=== PATIENT | female | born 1970 | race Hispanic/Latino ===

== ENCOUNTER 2016-03-19 12:48 | Observation (INO) | payer MEDICARE, MEDICAID ==
[~2016-03-19] VITALS: Ht 167.6 cm; Wt 103.0 kg
[~2016-03-19 12:48] MED LIST: ALBU8.5H4 IH; BUTA-238 PO; GABA300T25 PO; INSU100V27 SQ; INSU100V7 SUBQ; METF750T2 PO; SIMV40TA5 PO; TOPI-31 PO
[2016-03-19 13:13] VITALS: BP 128/81; PULSE 93; RESP 20; O2SAT 98
[2016-03-19 14:08] LABS: BASOPHILS % (AUTO) 0.5 % (0-3); EOSINOPHILS % (AUTO) 1.5 % (0-5); Mean Corpuscular Hemoglobin 27.1 pg (27.0-35.0); Mean Corpuscular Volume 86.2 fL (81-100); NEUTROPHILS % (AUTO) 65.9 % (40-74); Platelet Count 62 bil/L (150-400)
[2016-03-19 14:22] LABS: Magnesium 1.7 mg/dL (1.6-2.6)
--- NOTE | 2016-03-19 15:29 | ED.REPORT ---
HPI-Abd Pain M 40 and Over Date of Service Mar 19, 2016 ED Provider: Bear Sandy PA-C Tonya is a 45-year-old female with a history of cirrhosis, thrombocytopenia and cholecystectomy who presents with right-sided rib pain. Patient states pain began insidiously about 4 days ago. The pain is worse when she reclines, she describes it as steady sharp pain that radiates to her back and shoulders. She states the pain is better when she is upright, when she describes as a "nagging pain". Pain is not affected by food. He has a history of recent surgery for a cerebellar bleed on June 25. Admits chronic constipation, history of type II diabetes. Denies cough, shortness of breath, wheezing, chest pain, palpitations , vomiting, diarrhea, bowel change, urinary symptoms, rash. Nursing Notes Stated Complaint: POSSIBLE LIVER PROBLEMS/SENT FROM DR OFFICE Chief Complaint: Female Abdominal Pain Nursing Notes Reviewed: Yes Allergies: Coded Allergies: Penicillins (Verified Allergy, Severe, anaphylaxis, 03/19/16) cefuroxime (Verified Allergy, Severe, Anaphylaxis, 03/19/16) Contrast Media (Verified Allergy, Unknown, TRANSFER FROM OLD ENTRY, 03/19/16 ) Sulfa (Sulfonamide Antibiotics) (Verified Allergy, Unknown, 03/19/16) aspirin (Verified Allergy, Unknown, hives, 03/19/16) cefuroxime axetil (Verified Allergy, Unknown, hives, 03/19/16) hydrocodone bitartrate (Verified Allergy, Unknown, hives, 03/19/16) hydrocodone (Unverified Adverse Reaction, Severe, Rash, 03/19/16) ketorolac (Unverified Adverse Reaction, Severe, Anaphylaxis; , 03/19/16) Scheduled Gabapentin (Gabapentin) 300 Mg Capsule 300 MG PO BIDBL Gabapentin (Gabapentin) 300 Mg Capsule 600 MG PO HS Insulin Glargine (Lantus U100 Insulin Vial) 100 Unit/Ml Vial 50 UNIT SUBQ BID Losartan Potassium (Losartan Potassium) 25 Mg Tablet 25 MG PO DAILY Metformin ER (Metformin ER) 750 Mg Tab.er.24h 750 MG PO BID Omeprazole (Omeprazole) 20 Mg Capsule.dr 20 MG PO DAILY Prednisolone Acetate (Prednisolone Acetate) 5 Ml Drops.susp 1 DROP LEFT_EYE QID Simvastatin (Simvastatin) 40 Mg Tablet 40 MG PO HS Topiramate (Topiramate) 200 Mg Tablet 200 MG PO BID Scheduled PRN Albuterol HFA (Proair HFA) 8.5 Gm Hfa.aer.ad 2 PUFFS INHALATION Q4H PRN PRN For Shortness of Breath Cyclopentolate (Cyclopentolate) 2 Ml Drops 1 DROP BOTH_EYES BID PRN PRN For Eye Irritation NPH, Human Insulin Isophane (Novolin-N U100 Insulin Vial) 100 Unit/1 Ml Vial 30- 50 UNIT SUBQ ACHS PRN PRN AD General Time Seen by MD: 15:04 Chief Complaint Abdominal pain Sudden in Onset?: No Past Medical History Past Medical History 1. Diabetes Type I 2. GI bleed 3. Neuropathy 4. Retinopathy 5. Thrombocytopenia 6. Hyperglycemia secondary to poorly controlled diabetes 7. Left tubal 8. 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 Hemoplegic migraines 10. Liver cirrhosis 12. Dysphagia Reports: Asthma, Diabetes mellitus, Hyperlipidemia Reports: Thyroid disease, Urinary tract infection Past Surgical History Tubular Craniotomy Reports: Cholecystectomy, Tonsillectomy Smoking History Current Every Day Smoker, Current Some Day Smoker Social History Alcohol Use: "Social" Drug Use: Denies drug use Other Social History: Good social support, Local resident Ambulatory Status Independent Physical Exam Initial Vital Signs Vital Signs (First) Date Time Temp Pulse Resp B/P Pulse Ox O2 Delivery O2 Flow Rate FiO2 03/19/16 13:13 36.6 93 20 128/81 98 Room Air Interpretation & Diagnostics Interpretation & Diagnostics: PROCEDURE: X-RAY CHEST, TWO VIEWS ([id number]) IMPRESSION: No acute process. Lab Results Interpretation Result Diagram: 03/19/16 1349 03/19/16 1349 Test 03/19/16 13:49 03/19/16 18:35 White Blood Count 4.0th/mm3 (3.8-10.1) Red Blood Count 3.84mil/mm3 (3.90-5.20) Hemoglobin 10.4g/dL (12.0-15.6) Hematocrit 33.1% (35.0-46.0) Mean Corpuscular Volume 86.2fL (81-100) Mean Corpuscular Hemoglobin 27.1pg (27.0-35.0) Mean Corpuscular Hemoglobin Concent 31.4% (32.0-37.0) Red Cell Distribution Width 16.3% (12.3-15.4) Platelet Count 62bil/L (150-400) Neutrophils (%) (Auto) 65.9% (40-74) Lymphocytes (%) (Auto) 24.1% (14-46) Monocytes (%) (Auto) 8.0% (4-12) Eosinophils (%) (Auto) 1.5% (0-5) Basophils (%) (Auto) 0.5% (0-3) Prothrombin Time 10.9sec (8.1-12.5) Prothromb Time International Ratio 1.02ratio D-Dimer 0.6mg/L (<0.50) Sodium Level 134mEq/L (134-144) Potassium Level 4.2mEq/L (3.5-5.2) Chloride Level 101mEq/L (97-108) Carbon Dioxide Level 19mmol/L (18-29) Blood Urea Nitrogen 13mg/dL (6-24) Creatinine 0.55mg/dL (0.57-1.00) Estimat Glomerular Filtration Rate 170mL/min (>59) Glucose Level 317mg/dL (60-99) Calcium Level 8.8mg/dL (8.5-10.1) Magnesium Level 1.7mg/dL (1.6-2.6) Total Bilirubin 0.7mg/dL (0.0-1.2) Aspartate Amino Transf (AST/SGOT) 20U/L (0-50) Alanine Aminotransferase (ALT/SGPT) 21U/L (0-32) Alkaline Phosphatase 277U/L (25-150) Total Protein 7.6g/dL (6.4-8.4) Albumin 3.6g/dL (3.4-5.0) Lipase 30U/L (13-60) Hold [place]arro Top Tube Received (Received) Urine Color Dark yellow (YELLOW) Urine Appearance Clear (CLEAR,HAZY) Urine pH 7.0 (5.0-8.0) Urine Specific [place] 1.020 (1.003-1.035) Urine Protein Negativemg/dL (NEG,TRACE) Urine Glucose (UA) 100mg/dL (NEGATIVE) Urine Ketones Negativemg/dL (NEGATIVE) Urine Occult Blood Negative (NEGATIVE) Urine Nitrite Negative (NEGATIVE) Urine Bilirubin Negative (NEGATIVE) Urine Urobilinogen 4.0mg/dL (NORMAL) Urine Leukocyte Esterase Negative (NEGATIVE) Urine RBC 0-2/hpf (0-2) Urine WBC 0-5/hpf (0-5) Urine Epithelial Cells None/hpf (NONE-MOD) Urine Crystals Amorphous urates (NONE Urine Bacteria Few/hpf (NONE-FEW) Urine Hyaline Casts None/lpf (NONE) Urine Granular Casts None seen (NONE SEEN) Urine Waxy Casts None seen (NONE SEEN) Urine Red Blood Cell Casts None seen (NONE SEEN) Urine White Blood Cell Casts None seen (NONE SEEN) Urine Mucus Present (None Seen) Urine Trichomonas None seen (NONE SEEN) Urine Yeast None (NONE SEEN) Urinalysis Comment None Urine Culture Reflexed Not indicated Hold Urine Received (Received) Lab Results Interpretation: CBC chronic thrombocytopenia CMP moderate hyperglycemia INR normal CT Abd / Pelvis Interpretation PROCEDURE: CT ABDOMEN AND PELVIS WITHOUT CONTRAST ([id number]) INDICATIONS: right upper quadrant pain IMPRESSION: 1. Diagnostic sensitivity limited by lack of oral and intravenous contrast. 2. No definite acute disease process. 3. Hepatosplenomegaly. 4. Liver has nodular margins suggestive of hepatic cirrhosis. Please correlate with clinical and laboratory data. 5. Periportal enlarged lymph nodes stable compared to prior examination. 6. Status post cholecystectomy. 7. Stable fat containing ventral hernias. 8. Masslike opacity in the right lung base. Finding could be due to inflammatory/infectious etiologies or neoplastic process. Recommend correlation with clinical and laboratory data as well as followup CT scan in 3 months. . Interpretation / Wet Read by: Interpret - ED physician, Interpret - Radiologist Re-Eval/Medical Decision Source of Hx: Old records Consultation : Referral / Consult Name: Ian Petersen DO Consulted With: Tennis Racket Repairer Requested Call at: 19:24 Call Returned at: 19:38 Social Media Manager: Will see in office Note: Discussed the case with Dr. Petersen he advised ruling out pulmonary embolus as a source of pain, discharging to home with follow-up the end of this week or early next. Discharge & Departure Primary Impression: Lung mass Additional Impressions: Chest pain Chest pain type: unspecified Qualified Code: R07.9 - Chest pain, unspecified Hyperglycemia Vital Signs - All Vital Signs Date Time Temp Pulse Resp B/P Pulse Ox O2 Delivery O2 Flow Rate FiO2 03/19/16 20:24 37.4 97 18 117/72 97 Room Air 03/19/16 17:52 36.7 96 16 122/81 97 Room Air 03/19/16 13:13 36.6 93 20 128/81 98 Room Air Referrals: Dannielle Bernard MD (PCP) Attending Statement This is a 45-year-old female seen initially by the mid-level provider. However personally examined this patient. She presents with an uncomfortable-appearing right-sided chest pain or/right upper quadrant pain. She has a history of fatty liver disease, nonalcoholic cirrhosis with chronic thrombocytopenia and his x-ray followed by Dr. BERNARD OF Hematology. She underwent extensive workup, that included blood work which is fairly unremarkable except for chronic thrombocytopenia and hyperglycemia with poorly controlled diabetes without evidence of DKA. She underwent imaging with a CT scan abdomen and pelvis which revealed lots of chronic findings, but is actually notable for potential lung mass in the right side-and it had to be exactly where she is complaining of her symptoms. Not tachycardic or hypoxic. She is in moderate pain. She is a smoker, and malignancy is in the differential. Discussed the case with Dr. Petersen from hematology on-call for her regular dairy nutritionist. Given her symptoms, he requested a CT angiogram, however she has not contrast allergy-is only mild itching. A d-dimer was added and is positive at 0.6. The patient received a single dose of protective Lovenox at the dosing recommended by the pharmacist in the setting of her known liver disease and thrombocytopenia. The plan is to initiate the contrast allergy protocol and obtain a CT chest in the morning for further evaluation, at which point further follow-up with her dairy nutritionist/oncologist can be obtained if negative for PE. Bear Sandy PA-C Mar 19, 2016 15:29 Rajan Hays MD Mar 20, 2016 00:09
--- NOTE | 2016-03-19 16:31 | DRSVH ---
PROCEDURE: X-RAY CHEST, TWO VIEWS ([id number]) INDICATIONS: rib pain TECHNIQUE: 2 views of the chest were acquired. COMPARISON: [facility], CHEST 2VW, 02/27/2014, 2:27 PM. FINDINGS: Surgical changes and devices: None. Lungs and pleura: No pleural effusions or pneumothorax. Lungs are clear. Mediastinum: Mediastinal contours are normal. Heart size is normal. Bones and chest wall: No suspicious bony abnormalities. Soft tissues appear unremarkable. IMPRESSION: No acute process. Dictated by: Paul Lara M.D. on 03/19/2016 at 16:29 Approved by: Paul Lara M.D. on 03/19/2016 at 16:29
[2016-03-19 17:52] VITALS: BP 122/81; PULSE 96; RESP 16; O2SAT 97
--- NOTE | 2016-03-19 19:03 | DRSVH ---
PROCEDURE: CT ABDOMEN AND PELVIS WITHOUT CONTRAST ([id number]) INDICATIONS: right upper quadrant pain TECHNIQUE: Noncontrast 5 mm thick sections acquired from the diaphragms to the symphysis. 5 mm coronal and sagi ttal reformats were then performed. For radiation dose reduction, the following was used: automated exposure control, adjustment of mA and/or kV according to patient size. COMPARISON: [facility], CT, CT ABD PELVIS W CON, 04/23/2015, 10:23. FINDINGS: Image quality: Diagnostic sensitivity of study is limited secondary to lack of both oral and intrave nous contrast. ABDOMEN: Lung bases: 2.5 cm in maximum diameter masslike opacity is noted in the anterolateral right lung bas e. Heart size is normal. Solid organs: Liver and spleen are enlarged. Liver has nodular margins suggesting hepatic cirrhosis . Gallbladder is surgically absent. Pancreas is normal in contours. No adrenal nodules. Kidneys a re normal in size, without hydronephrosis or nephrolithiasis. Peritoneum and bowel: Unenhanced bowel loops demonstrate normal wall thickness and caliber. No free fluid or air. Nodes and vessels: Periportal enlarged lymph nodes are stable compared to prior CT scan. and inferi or vena cava are normal in caliber. Miscellaneous: Fat-containing ventral hernias are stable compared to prior examination.. PELVIS: Genitourinary: Bladder wall thickness is normal. Miscellaneous: No inguinal hernias or adenopathy. Bones: No suspicious bony lesions. No vertebral body compression fractures. IMPRESSION: 1. Diagnostic sensitivity limited by lack of oral and intravenous contrast. 2. No definite acute disease process. 3. Hepatosplenomegaly. 4. Liver has nodular margins suggestive of hepatic cirrhosis. Please correlate with clinical and la boratory data. 5. Periportal enlarged lymph nodes stable compared to prior examination. 6. Status post cholecystectomy. 7. Stable fat containing ventral hernias. 8. Masslike opacity in the right lung base. Finding could be due to inflammatory/infectious etiolog ies or neoplastic process. Recommend correlation with clinical and laboratory data as well as follow up CT scan in 3 months. Dictated by: Basilia Genao MD, PhD on 03/19/2016 at 18:52 Approved by: Basilia Genao MD, PhD on 03/19/2016 at 19:02
[2016-03-19 19:25] LABS: INR 1.02 ratio
[2016-03-19 20:02] LABS: APPEARANCE,URINE CLEAR (CLEAR,HAZY); COLOR,URINE DARK YELLOW (YELLOW)
[2016-03-19 20:03] LABS: OCCULT BLOOD,URINE NEGATIVE (NEGATIVE)
[2016-03-19 20:24] VITALS: BP 117/72; PULSE 97; RESP 18; O2SAT 97
[2016-03-19] MEDS ORDERED: ALBU8.5H2 INHALATION (20:51)
[2016-03-19] MEDS ORDERED: CYCL2DRO10 BOTH_EYES (20:51)
[2016-03-19] MEDS ORDERED: GABA-502 PO ×2 (20:51)
[2016-03-19] MEDS ORDERED: INSU500I SQ (20:51)
[2016-03-19] MEDS ORDERED: TOPI200T7 PO (20:54)
[2016-03-19] MEDS ORDERED: LOSA25TA21 PO (20:54)
[2016-03-19] MEDS ORDERED: PRED5DRO6 LEFT_EYE (20:54)
[2016-03-19] MEDS ORDERED: OMEP20CA11 PO (20:54)
[2016-03-19] MEDS ORDERED: Polyethylene Glycol (PEG) 17 Gm Powder PO PRN (21:40)
[2016-03-19] MEDS ORDERED: Ondansetron 2 mg/mL 2 mL Inj IVPUSH PRN ×2 (21:40)
[2016-03-19] MEDS ORDERED: predniSONE 20 mg Tablet PO ONE ×2 (21:40→22:20)
[2016-03-19] MEDS ORDERED: HYDROmorphone 1 mg/mL Inj IVPUSH ONE (21:40)
[2016-03-19] MEDS ORDERED: Alum-Mag Hydrox-Simeth 30 mL Suspension PO PRN ×2 (21:40)
[2016-03-19 21:50] VITALS: BP 117/72; PULSE 97; RESP 18; O2SAT 97
[2016-03-19] MEDS ORDERED: diphenhydrAMINE 50 mg Capsule PO ONE (21:55)
[2016-03-19] MEDS ORDERED: (U-500) Insulin Regluar, Human 500 Unit/mL Syringe SUBQ PRN (22:20)
[2016-03-19] MEDS ORDERED: Glucose 40% Oral Gel 15 Gm Tube PO PRN (22:20)
[2016-03-19] MEDS ORDERED: Albuterol 2.5 mg/3 mL Inhalation Solution NEB PRN (22:30)
[2016-03-19 22:32] VITALS: BP 131/85; PULSE 107; RESP 18; O2SAT 94
--- NOTE | 2016-03-19 22:39 | PCM.HPMED ---
Subjective Date of Service Mar 19, 2016 Primary Provider: Admitting Physician: Bassem Jenkins MD Primary Care Physician: Dannielle Garnica MD Attending Physician: Bassem Jenkins MD Chief Complaint: Right chest pain History of Present Illness: Patient is a 45 year old female with a history of cirrhosis secondary to fatty liver disease, type 2 diabetes mellitus, cerebellar hemorrhage, seizure disorder , and thrombocytopenia. She presented to [facility] on 03/19/16 with about 4 days of right chest pain. The pain radiates into her right shoulder blade, neck and back. She states that is has been nagging and is of a sharp quality. It can be worse when she sits back. It has worsened to the point where she feels nauseated but denies any vomiting. She has not been short of breath, without fever/chills, no recent cold or flu symptoms such as cough or sore throat, and she denies dysuria/hematuria. In the ED the patient is afebrile with a heart rate of 93, respiratory rate of 20, blood pressure 128/81, and O2 saturation of 98% on room air. Labs were remarkable for platelets 62, hgb 10.4, blood glucose 317, and alkaline phosphatase of 277. New lung mass seen on CT abd/pelvis. Dr. Petersen of heme/onc called and recommended CTA. As patient has contrast allergy she will be admitted for the standard contrast allergy protocol. Discussed with Dr. Hays. Review of Systems: A comprehensive review of systems was conducted with the patient and found to be negative except as above in the history of present illness. Allergies Coded Allergies: Penicillins (Verified Allergy, Severe, anaphylaxis, 03/19/16) cefuroxime (Verified Allergy, Severe, Anaphylaxis, 03/19/16) Contrast Media (Verified Allergy, Unknown, TRANSFER FROM OLD ENTRY, 03/19/16 ) Sulfa (Sulfonamide Antibiotics) (Verified Allergy, Unknown, 03/19/16) aspirin (Verified Allergy, Unknown, hives, 03/19/16) cefuroxime axetil (Verified Allergy, Unknown, hives, 03/19/16) hydrocodone bitartrate (Verified Allergy, Unknown, hives, 03/19/16) hydrocodone (Unverified Adverse Reaction, Severe, Rash, 03/19/16) ketorolac (Unverified Adverse Reaction, Severe, Anaphylaxis; , 03/19/16) Home Medications Per [facility] 03/06/16: Acarbose 100 mg tablet take 1 tablet by oral route 3 times every day at the start (with the first bite) of each main meal Albuterol sulfate HFA 90 mcg/actuation aerosol inhaler inhale 2 puff by inhalation route every 4 - 6 hours as needed Cyclopentolate 1 % eye drops instill 1 drop by ophthalmic route 2 times every day into affected eye(s) GABAPENTIN 300 MG CAPSULE 300MG TAKE ONE CAPSULE BY MOUTH IN THE MORNING AND NOON AND TAKE 2 CAPSULES AT BEDTIME Humulin R U-500 "Concentrated" Insulin 500 unit/mL subcutaneous soln inject by subcutaneous route 12-15 units before each meal Lantus 100 unit/mL subcutaneous solution 60 units subcu twice daily Losartan 25 mg tablet take 1 tablet by oral route every day Metformin ER 750 mg tablet,extended release 24 hr take 1 tablet by oral route twice every day Omeprazole 20 mg capsule,delayed release take 1 capsule by oral route every day before a meal SIMVASTATIN 40MG TABLET TAKE ONE TABLET BY MOUTH DAILY IN THE EVENING FOR HIGH CHOLESTEROL Topamax 200 mg tablet take 1 tablet by oral route 2 times every day PMH Type 2 diabetes mellitus with peripheral neuropathy, insulin dependent GERD Seizure disorder 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) Gastroparesis History of cystocele Hyperlipidemia Migraine with aura Cirrhosis secondary to fatty liver disease Surgical History Tonsillectomy Cholecystectomy Angioembolization ([facility], June 2015) Family History Father - type 2 DM Mother - COPD Sister - Hepatitis C Social History Hx Alcohol Use: No Hx Substance Use: No Hx Tobacco Use: Yes Smoking Status: Former Smoker (Reports light smoking in college) Exam Vital Signs Vital Sign - Last Date Time Temp Pulse Resp B/P Pulse Ox O2 Delivery O2 Flow Rate FiO2 03/19/16 20:24 37.4 97 18 117/72 97 Room Air Exam Alert and oriented x3, no acute distress, obese Head atraumatic, normocephalic PERRLA, EOMI, sclera anicteric Mucus membranes moist, no oral thrush observed No cervical lymphadenopathy, neck supple, tender on the right No JVD noted Cardiac tones regular rate and rhythm with no murmur appreciated Lungs clear to auscultation bilaterally with adequate respiratory effort No abdominal tenderness, non-distended, normoactive bowel tones, soft Og absent Radial pulses normal and equivalent bilaterally, dorsalis pedis pulses normal and equivalent bilaterally No cyanosis, clubbing or edema No ulcerations/open wounds Cranial nerves appear to be fully intact, normal speech - some difficulty finding words, patient can move upper and lower limbs grossly Lab and Diagnostics Result Diagram: 03/19/16 1349 03/19/16 1349 X-Rays, CTs and MRIs CT abd/pelvis: IMPRESSION: 1. Diagnostic sensitivity limited by lack of oral and intravenous contrast. 2. No definite acute disease process. 3. Hepatosplenomegaly. 4. Liver has nodular margins suggestive of hepatic cirrhosis. Please correlate with clinical and laboratory data. 5. Periportal enlarged lymph nodes stable compared to prior examination. 6. Status post cholecystectomy. 7. Stable fat containing ventral hernias. 8. Masslike opacity in the right lung base. Finding could be due to inflammatory/infectious etiologies or neoplastic process. Recommend correlation with clinical and laboratory data as well as followup CT scan in 3 months. Dictated by: Basilia Genao MD, PhD on 03/19/2016 at 18:52 Chest x-ray IMPRESSION: No acute process. Dictated by: Paul Lara M.D. on 03/19/2016 at 16:29 Assessment & Plan Patient is a 45 year old female with a history of cirrhosis secondary to fatty liver disease, type 2 diabetes mellitus, cerebellar hemorrhage, seizure disorder , and thrombocytopenia. She presented to [facility] on 03/19/16 with about 4 days of right chest pain. New lung mass/consolidation discovered on CT abd/pelvis. Dr. Petersen was consulted and recommended follow up CTA as soon as possible. Patient admitted obs for administration of contrast allergy pre-treatment and CTA chest. 1. Chest pain overlying new lung mass in right lower lung, acute, present on admission. - Cannot positively rule out PE at this time and D-dimer elevated. Could be malignancy or infectious consolidation. Infection less likely due to normal WBC , afebrile. - CT contrast allergy standard pre-treatment protocol including: Prednisone 50 mg PO 13 hours, 7 hours, and 1 hour prior to exam; Benadryl 50 mg PO 1 hour prior to exam. - CTA PE protocol ordered per Dr. Petersen and pending pre-treatment protocol. - Full dose Lovenox started 100 mg BID (per pharmacy) and will be continued until PE ruled out. - Oxycodone 5 mg available Q6H PRN. Tylenol also available PRN pain. - No evidence of COLLIN at this time. Could consider administration of 1 liter IV fluids tomorrow AM. - Repeat BMP tomorrow AM. 2. Type 2 DM with neuropathy, chronic, uncontrolled. - Last known A1c 12.1 on 10/19/14. - Continue lantus 60 units BID. Unconfirmed home insulin - Humulin-R (U-500) 12 -15 TID with meals. - Diabetic diet ordered. - Will hold metformin at this time as patient will be receiving IV contrast in AM. - Continue gabapentin 300 mg QAM, 300 mg at noon, 600 mg HS. - Continue acarbose 100 mg TID. - Repeat A1c ordered and pending. - With administration of prednisone, expect to see blood sugar run higher than normal. Will monitor closely and have high dose correction scale available PRN. 3. GERD, chronic, presume stable. - Continue PPI during admission. 4. Hyperlipidemia, chronic, presume stable. - Continue statin during admission. 5. Seizure disorder, chronic, presume stable. - Continue topamax 200 mg BID. 6. Cirrhosis secondary to fatty liver disease with thrombocytopenia, presume stable. - Patient follows with Dr. Garnica. - Will continue to monitor CBC, CMP. 7. History of right superior cerebellar peduncle hemorrhage, presume stable. - Underwent angioembolization at [facility] in June 2015. - If concerns about mental status changes, low threshold for CT head. 8. Medication reconciliation: - Patient has told different providers different home dosing of short acting insulin. Please verify dosing with her preferred pharmacy tomorrow AM when they are open. - Antiemetic PRN. - Antacid PRN. - Bowel regimen PRN. Patient admitted under observation status with expected length of stay less than 2 midnights for severity of present symptoms, complexities of treatment plan and risk for adverse events. PCP Quique Anthony MD Neurologist Pito Whitaker MD Clinical Staff Educator Dannielle Garnica MD GI Prophylaxis: Proton Pump Inhibitor VTE Prophylaxis: Sub-Q Enoxaparin Resuscitation Status: CPR: Attempt Resuscitation Attending Statement The patient was seen and examined together with Dr. Sal on 03/19 and I agree with the history, exam and plan as outlined in the note above. copies to: Quique Anthony MD, Jennifer E DO Mar 19, 2016 22:06 Bassem Jenkins MD Mar 20, 2016 00:38
[2016-03-20] MEDS ORDERED: NPH,100V10 SUBQ (00:01)
[2016-03-20] MEDS: Insulin GLARgine 100 Unit/mL Syringe SUBQ SCH ×3 (00:31→20:54)
[2016-03-20] MEDS ORDERED: Lactulose 20 Gm/30 mL 30 mL Syrup PO ONE (01:45)
[2016-03-20 03:56] VITALS: BP 100/64; PULSE 89; RESP 18; O2SAT 97
--- NOTE | 2016-03-20 04:45 | NUR ---
Admit Pt arrived to [facility] 240-2 from ED. Pt is allergic to contrast medium and is requiring a CT scan to rule out PE. Pt is admitted to receive Steroids and Benadryl per protocol prior to scan. Pt uses a FWW at baseline to ambulate and is A&Ox3 and able to DREW. Pt orient to call light, falls policy and room. VSS and Tele SR/T90's to 110's.
[2016-03-20] MEDS: predniSONE 20 mg Tablet PO SCH ×2 (05:11→10:54)
[2016-03-20 07:00] VITALS: PULSE 102
[2016-03-20 07:55] LABS: BASOPHILS % (AUTO) 0.3 % (0-3); EOSINOPHILS % (AUTO) 0 % (0-5); MONOCYTES % (AUTO) 2.2 % (4-12); Mean Corpuscular Hemoglobin 27.2 pg (27.0-35.0); Mean Corpuscular Volume 86.2 fL (81-100); NEUTROPHILS % (AUTO) 84.8 % (40-74); Platelet Count 55 bil/L (150-400)
[2016-03-20 08:00] VITALS: PULSE 100
[2016-03-20] MEDS ORDERED: Insulin LISPRO 300 Unit/3 mL Inj SUBQ SCH (08:00)
[2016-03-20] MEDS: Pantoprazole 40 mg ER24 Tablet PO SCH (08:14)
[2016-03-20 08:17] LABS: Magnesium 1.6 mg/dL (1.6-2.6); Phosphorus 3.5 mg/dL (2.5-4.9)
[2016-03-20] MEDS ORDERED: Influenza (Adult) Vaccine 0.5 mL Syringe IM ONE (08:30)
[2016-03-20 08:35] VITALS: BP 111/73; PULSE 86; RESP 16; O2SAT 97
[2016-03-20] MEDS ORDERED: diphenhydrAMINE 50 mg Capsule PO ONE (11:00)
--- NOTE | 2016-03-20 11:41 | NUR ---
Case Management: LIZ delivered and signed. Original placed in chart. Copy left at bedside. Prudence Weaver RN
--- NOTE | 2016-03-20 13:29 | DRSVH ---
PROCEDURE: CT ANGIO CHEST PULMONARY EMBOLISM ([id number]) INDICATIONS: chest pain TECHNIQUE: After the administration of intravenous contrast, 2 mm thick sections acquired from the pulmonary api joon to the posterior costophrenic angles. 3-dimensional maximum intensity projection (MIP) coronal a nd sagittal reformats were then acquired through the thorax. For radiation dose reduction, the follo wing was used: automated exposure control, adjustment of mA and/or kV according to patient size. COMPARISON: [facility], CT, CHEST ANGIO-PE, 08/20/2013, 22:39. [facility], C T, CT ABD PELVIS WO CON, 03/19/2016, 18:45. FINDINGS: Image quality: Excellent. Pulmonary arteries: Pulmonary arteries are normal in size, and demonstrate no intraluminal filling d efects to suggest central pulmonary embolism. Lungs and pleura: Masslike consolidation in the right lung base is noted which could represent pneumo tim or atelectasis, however underlying neoplastic process can't be excluded. Recommend correlation wi clinical and laboratory data as well as followup CT scan in one month. No pleural effusions or pne umothorax. Central and peripheral airways are patent. Mediastinum: Heart size is normal, without pericardial effusion. No mediastinal or hilar adenopathy . Thoracic aorta is normal in caliber and enhancement. Esophagus is normal in caliber, without hiat al hernia. Bones and chest wall: No suspicious bony lesions. Ribs and thoracic spine appear intact throughout. Thyroid gland is within normal limits. No axillary or supraclavicular adenopathy. Abdomen: Liver has nodular margins suggestive of hepatic cirrhosis. Spleen is enlarged. Periportal en larged lymph nodes are stable compared to prior examinations. IMPRESSION: 1. No pulmonary embolus. 2. Masslike consolidation in the right lung base. Finding could represent pneumonia or atelectasis, however underlying neoplastic process cannot be excluded without follow up imaging. Recommend repeat CT scan in one month. 3. Findings suspicious for hepatic cirrhosis. Please correlate with clinical and laboratory data. 4. Splenomegaly. 5. Enlarged periportal lymph nodes in the upper abdomen stable compared to prior examinations. Dictated by: Basilia Genao MD, PhD on 03/20/2016 at 13:17 Approved by: Basilia Genao MD, PhD on 03/20/2016 at 13:27
[2016-03-20 15:23] VITALS: BP 134/82; PULSE 78; RESP 16; O2SAT 96
--- NOTE | 2016-03-20 17:31 | PCM.PNMED ---
Subjective Date of Service Mar 20, 2016 Subjective Patient is a 45 year old female with a history of cirrhosis secondary to fatty liver disease, type 2 diabetes mellitus, cerebellar hemorrhage, seizure disorder , and thrombocytopenia. Patient is admitted for r/o of PE and evaluation of right sided lung mass. Hospital Day 2 Overnight: no events reported Today: patient stated that she is having right sided chest pain that is reproduced with motion and not fully covered by pain medication. Patient denies hemoptysis, chest pressure, shortness of breath, fever, chills. ROS negative except for mentioned above. Exam Vital Signs Vital Sign - Last Date Time Temp Pulse Resp B/P Pulse Ox O2 Delivery O2 Flow Rate FiO2 03/20/16 07:00 102 03/20/16 03:56 36.9 18 100/64 97 Room Air Intake and Output 03/19/16 03/19/16 03/20/16 Cumulative From/Thru 15:00 23:00 07:00 03/19/16 13:13 - 03/20/16 03:56 Intake Total 100 ml 100 ml Output Total 150 ml 150 ml Balance -50 ml -50 ml Intake Oral 100 ml 100 ml Output Urine Total 150 ml 150 ml # Bowel Movements 0 0 Exam GEN:Alert and oriented x3, no acute distress, obese HEENT:Head atraumatic, normocephalic, PERRLA, EOMI, sclera anicteric, Mucus membranes moist, no oral thrush observed, No cervical lymphadenopathy, neck supple, tender on the right No JVD noted HEART:Cardiac tones regular rate and rhythm with no murmur appreciated LUNGS: Lungs clear to auscultation bilaterally with adequate respiratory effort ABD: No abdominal tenderness, non-distended, normoactive bowel tones, soft EXT:Radial pulses normal and equivalent bilaterally, dorsalis pedis pulses normal and equivalent bilaterally,No cyanosis, clubbing or edema, No ulcerations /open wounds NEURO: Cranial nerves appear to be fully intact, normal speech - some difficulty finding words, patient can move upper and lower limbs grossly : Og absent IVs and Medications Medications Reviewed: Medications were reviewed in detail Lab and Diagnostics Result Diagram: 03/19/16 1349 03/19/16 1349 X-Rays, CTs and MRIs CT abd/pelvis: IMPRESSION: 1. Diagnostic sensitivity limited by lack of oral and intravenous contrast. 2. No definite acute disease process. 3. Hepatosplenomegaly. 4. Liver has nodular margins suggestive of hepatic cirrhosis. Please correlate with clinical and laboratory data. 5. Periportal enlarged lymph nodes stable compared to prior examination. 6. Status post cholecystectomy. 7. Stable fat containing ventral hernias. 8. Masslike opacity in the right lung base. Finding could be due to inflammatory/infectious etiologies or neoplastic process. Recommend correlation with clinical and laboratory data as well as followup CT scan in 3 months. Dictated by: Basilia Genao MD, PhD on 03/19/2016 at 18:52 Chest x-ray IMPRESSION: No acute process. Dictated by: Paul Lara M.D. on 03/19/2016 at 16:29 Assessment & Plan Patient is a 45 year old female with a history of cirrhosis secondary to fatty liver disease, type 2 diabetes mellitus, cerebellar hemorrhage, seizure disorder , and thrombocytopenia. Patient admitted obs for administration of contrast allergy pre-treatment and CTA chest. Hospital Day 2 1. Chest pain overlying new lung mass in right lower lung, acute, present on admission. -due to suspected pneumonia ,lung mass needs to be ruled out with follow up imaging - - CT contrast allergy standard pre-treatment protocol including: Prednisone 50 mg PO 13 hours, 7 hours, and 1 hour prior to exam; Benadryl 50 mg PO 1 hour prior to exam. - CTA negative for PE, showed presence of right lower lobe consolidation, recommend repeat ct and appropriate antibiotic treatment to r/o infectious etiology - Start Levaquin 500 mg PO QD - Stop Lovenox - Stop Oxycodone 5 mg available Q6H PRN. - Tylenol available PRN pain. - Repeat BMP tomorrow AM. 2. Type 2 DM with neuropathy, chronic, uncontrolled. - Last known A1c 12.1 on 10/19/14. - Continue lantus 60 units BID. Unconfirmed home insulin - Humulin-R (U-500) 12 -15 TID with meals. - Diabetic diet ordered. - Will hold metformin at this time as patient will be receiving IV contrast in AM. - Continue gabapentin 300 mg QAM, 300 mg at noon, 600 mg HS. - Continue acarbose 100 mg TID. - Repeat A1c ordered and pending. - Continue med correctional insulin 3. GERD, chronic, stable. - Continue PPI during admission. 4. Hyperlipidemia, chronic, stable. - Continue statin during admission. 5. Seizure disorder, chronic, stable. - Continue topamax 200 mg BID. 6. Cirrhosis secondary to fatty liver disease with thrombocytopenia, stable. - Patient follows with Dr. Garnica. - Will continue to monitor CBC, CMP. 7. History of right superior cerebellar peduncle hemorrhage, presume stable. - Underwent angioembolization at [facility] in June 2015. - If concerns about mental status changes, low threshold for CT head. - Antiemetic PRN. - Antacid PRN. - Bowel regimen PRN. Disposition: Likely discharge to home tomorrow on po abx CODE STATUS: FULL CODE PCP Quique Anthony MD Neurologist Pito Whitaker MD Regional Sales Engineer Dannielle Garnica MD GI Prophylaxis: Proton Pump Inhibitor VTE Prophylaxis: Sub-Q Enoxaparin Resuscitation Status: CPR: Attempt Resuscitation Attending Statement patient seen and examined with Dr Baum .I agree with the history,exam, impression and plan as outlined above EDILMA BAUM DO Mar 20, 2016 07:29 Anton Max MD Mar 20, 2016 18:41
[2016-03-20] MEDS ORDERED: Glucose 40% Oral Gel 15 Gm Tube PO PRN (18:50)
--- NOTE | 2016-03-20 19:18 | NUR ---
Blood sugar Pt's blood sugar in AM was 430 before breakfast. 12 units of insulin given per sliding scale orders. Doctor was paged to notify. Blood sugar was 400 one hour later. The blood sugar was checked again and was 435 at 1100. Order for insulin had been discontinued and so no sliding scale insulin was given at this time. Resident was present at the bedside and was aware of blood sugar. At dinner time blood sugar was up to 465. Doctor was paged again and clarification was requested regarding no orders for insulin. The doctor called back and orders were put in for insulin coverage. Continue to monitor.
[2016-03-20] MEDS: Insulin LISPRO 300 Unit/3 mL Inj SUBQ SCH (21:00)
[2016-03-20 22:54] VITALS: BP 109/68; PULSE 97; RESP 18; O2SAT 96
[2016-03-21] MEDS ORDERED: Insulin LISPRO 300 Unit/3 mL Inj SUBQ ONE (03:30)
[2016-03-21 03:31] VITALS: BP 109/69; PULSE 84; RESP 18; O2SAT 97
[2016-03-21 04:40] VITALS: PULSE 79
[2016-03-21 05:29] LABS: Mean Corpuscular Hemoglobin 27.7 pg (27.0-35.0); Mean Corpuscular Volume 85.2 fL (81-100)
--- NOTE | 2016-03-21 06:04 | NUR ---
Pain/GI/BG Pt had one coughing spell and suddenly felt sharp pain on R side of ribs, felt that she had a muscle spasm or pulled a muscle. Oxycodone given x1, effective. Senna given for constipation, no results yet. BG elevated in 350-430's, called and order for 0300 coverage obtained.
[2016-03-21] MEDS ORDERED: Insulin Human REGular-Omnicell 100 Unit/mL SUBQ ONE (06:25)
[2016-03-21 07:38] VITALS: BP 103/68; PULSE 83; RESP 16
[2016-03-21] MEDS: Pantoprazole 40 mg ER24 Tablet PO SCH (07:39)
[2016-03-21] MEDS: Insulin GLARgine 100 Unit/mL Syringe SUBQ SCH (07:40)
[2016-03-21 07:47] VITALS: PULSE 87
[2016-03-21] MEDS ORDERED: Insulin GLARgine 100 Unit/mL Syringe SUBQ ONE (08:15)
[2016-03-21] MEDS: Insulin LISPRO 300 Unit/3 mL Inj SUBQ SCH ×2 (08:29→12:00)
[2016-03-21] MEDS ORDERED: Azithromycin Inj 500 MG in Dextrose 5% w/Vial Mate 250 ML IV SCH (08:30)
[2016-03-21] MEDS ORDERED: levoFLOXacin 500 mg Tablet PO SCH (08:30)
[2016-03-21 09:50] VITALS: BP 101/66; PULSE 93; RESP 18; O2SAT 97
[2016-03-21] MEDS ORDERED: 0.9% Sodium Chloride 500 ML IV ONE ×2 (11:10→12:40)
--- NOTE | 2016-03-21 11:14 | PCM.DIMED ---
Discharge Instructions Date of Service Mar 21, 2016 Dates of Hospitalization Mar 19, 2016 at 21:27 Discharge Diagnosis Discharge Diagnosis Pneumonia Questionable lung mass Pleurodynia Uncontrolled type II diabetes Cirrhosis of the liver Medication Instructions Please review your diabetes medications as they have been changed. Her blood sugars have been running in the high 300s and sometimes over 400. Please follow up in new recommended medication regimen for your diabetes medications. Please keep her appointment with her dermatology physician on March 26 as this is very critical to ensuring that her blood sugars are controlled. Diet Heart Healthy, Diabetic Activity Other (gradually returned to your normal daily activities as tolerated) Call your provider Fever or Chills, Shortness of breath, Chest pain Patient Instructions Please follow-up with her primary care physician to have a repeat CT scan of the chest in 4 weeks. You currently have pneumonia however there was a questionable lung mass that was noted this may have been due to the pneumonia however a repeat CT scan of the chest is necessary to ensure that no lung masses present. Follow-up plan CT scan of the chest in 4 weeks Follow-up Provider: Dannielle Garnica MD Follow-up with PCP in: 1 week Amirah Posadas DO Mar 21, 2016 11:14
[2016-03-21] MEDS ORDERED: ACAR25TA2 PO (11:18)
[2016-03-21] MEDS ORDERED: LEVO500T16 PO (11:18)
[2016-03-21] MEDS ORDERED: INSU100V7 SUBQ (11:18)
--- NOTE | 2016-03-21 11:34 | PCM.DC.MED ---
Discharge Summary Date of Service Mar 21, 2016 Dates of Hospitalization Date of Hospital Admission Mar 19, 2016 at 21:27 Date of Discharge: Mar 21, 2016 Providers: Admitting Physician: Bassem Jenkins MD Primary Care Physician: Dannielle Garnica MD Attending Physician: Bassem Jenkins MD Diagnosis at Time of Discharge Diagnosis at Time of Discharge Pneumonia Questionable lung mass Pleurodynia Uncontrolled type II diabetes Cirrhosis of the liver Procedures XRay, CTs & MRIs CT abd/pelvis: IMPRESSION: 1. Diagnostic sensitivity limited by lack of oral and intravenous contrast. 2. No definite acute disease process. 3. Hepatosplenomegaly. 4. Liver has nodular margins suggestive of hepatic cirrhosis. Please correlate with clinical and laboratory data. 5. Periportal enlarged lymph nodes stable compared to prior examination. 6. Status post cholecystectomy. 7. Stable fat containing ventral hernias. 8. Masslike opacity in the right lung base. Finding could be due to inflammatory/infectious etiologies or neoplastic process. Recommend correlation with clinical and laboratory data as well as followup CT scan in 3 months. Dictated by: Basilia Genao MD, PhD on 03/19/2016 at 18:52 Chest x-ray IMPRESSION: No acute process. Dictated by: Paul Lara M.D. on 03/19/2016 at 16:29 Brief History Patient is a 45 year old female with a history of cirrhosis secondary to fatty liver disease, type 2 diabetes mellitus, cerebellar hemorrhage, seizure disorder , and thrombocytopenia. She presented to [facility] on 03/19/16 with about 4 days of right chest pain. The pain radiates into her right shoulder blade, neck and back. She states that is has been nagging and is of a sharp quality. It can be worse when she sits back. It has worsened to the point where she feels nauseated but denies any vomiting. She has not been short of breath, without fever/chills, no recent cold or flu symptoms such as cough or sore throat, and she denies dysuria/hematuria. In the ED the patient is afebrile with a heart rate of 93, respiratory rate of 20, blood pressure 128/81, and O2 saturation of 98% on room air. Labs were remarkable for platelets 62, hgb 10.4, blood glucose 317, and alkaline phosphatase of 277. New lung mass seen on CT abd/pelvis. Dr. Petersen of heme/onc called and recommended CTA. As patient has contrast allergy she will be admitted for the standard contrast allergy protocol. Discussed with Dr. Hays. Hospital Course Patient is a 45 year old female with a history of cirrhosis secondary to fatty liver disease, type 2 diabetes mellitus, cerebellar hemorrhage, seizure disorder , and thrombocytopenia. Patient admitted obs for administration of contrast allergy pre-treatment and CTA chest. The patient was admitted with the complaint of chest pain possibly secondary to pleurodynia. A CT angiogram was performed and was negative for PE but then a right lower lobe consolidation was found and a CT scan was recommended. Prior to the PET scan and the patient was volume resuscitated and her metformin was stopped. After the CT scan more fluids were given and the patient's metformin will be restarted upon discharge home. A CT scan of the chest was performed and showed that the patient does have a pneumonia. However there was a suspicious mass that may have been seen underlying pneumonia. It is recommended that the patient follow-up with a CT scan in 4 weeks for further workup of this mass. The patient was started on Levaquin 500 milligrams by mouth daily and it is recommended that she continue with this medication for the next 10 days. The patient has uncontrolled type II diabetes. During this particular stay the patient's blood sugars were in the upper 300s and even 400s. Patient's Lantus was increased to 80 units twice a day and she was also started on acarbose 25 mg 3 times a day. The patient will resume her home dose of metformin and is encouraged to maintain her follow-up appointment with endocrinology on March 26 as she is severely uncontrolled with her diabetes. Patient's hemoglobin A1c was 10 upon admission. Patient is encouraged to maintain her follow-up appointments with endocrine, her primary care, and Dr. Garnica at her regularly scheduled visits. Exam Vital Signs (Last) Date Time Temp Pulse Resp B/P Pulse Ox O2 Delivery O2 Flow Rate FiO2 03/21/16 09:50 36.5 93 18 101/66 97 Room Air Test 03/19/16 13:49 03/19/16 18:35 03/20/16 01:00 03/20/16 07:00 Prothrombin Time 10.9sec (8.1-12.5) Prothromb Time International Ratio 1.02ratio D-Dimer 0.6mg/L (<0.50) Hemoglobin A1c 10.3% (4.8-5.6) Lipase 30U/L (13-60) Hold Navarro Top Tube Received (Received) Urine Color Dark yellow (YELLOW) Urine Appearance Clear (CLEAR,HAZY) Urine pH 7.0 (5.0-8.0) Urine Specific Cook Sta 1.020 (1.003-1.035) Urine Protein Negativemg/dL (NEG,TRACE) Urine Glucose (UA) 100mg/dL (NEGATIVE) Urine Ketones Negativemg/dL (NEGATIVE) Urine Occult Blood Negative (NEGATIVE) Urine Nitrite Negative (NEGATIVE) Urine Bilirubin Negative (NEGATIVE) Urine Urobilinogen 4.0mg/dL (NORMAL) Urine Leukocyte Esterase Negative (NEGATIVE) Urine RBC 0-2/hpf (0-2) Urine WBC 0-5/hpf (0-5) Urine Epithelial Cells None/hpf (NONE-MOD) Urine Crystals Amorphous urates (NONE Urine Bacteria Few/hpf (NONE-FEW) Urine Hyaline Casts None/lpf (NONE) Urine Granular Casts None seen (NONE SEEN) Urine Waxy Casts None seen (NONE SEEN) Urine Red Blood Cell Casts None seen (NONE SEEN) Urine White Blood Cell Casts None seen (NONE SEEN) Urine Mucus Present (None Seen) Urine Trichomonas None seen (NONE SEEN) Urine Yeast None (NONE SEEN) Urinalysis Comment None Urine Culture Reflexed Not indicated Hold Urine Received (Received) Ammonia 134ug/dL (18-53) Neutrophils (%) (Auto) 84.8% (40-74) Lymphocytes (%) (Auto) 12.7% (14-46) Monocytes (%) (Auto) 2.2% (4-12) Eosinophils (%) (Auto) 0% (0-5) Basophils (%) (Auto) 0.3% (0-3) Phosphorus Level 3.5mg/dL (2.5-4.9) Magnesium Level 1.6mg/dL (1.6-2.6) Total Bilirubin 1.1mg/dL (0.0-1.2) Aspartate Amino Transf (AST/SGOT) 21U/L (0-50) Alanine Aminotransferase (ALT/SGPT) 20U/L (0-32) Alkaline Phosphatase 265U/L (25-150) Total Protein 7.2g/dL (6.4-8.4) Albumin 3.4g/dL (3.4-5.0) Test 03/21/16 05:19 White Blood Count 3.8th/mm3 (3.8-10.1) Red Blood Count 3.18mil/mm3 (3.90-5.20) Hemoglobin 8.8g/dL (12.0-15.6) Hematocrit 27.1% (35.0-46.0) Mean Corpuscular Volume 85.2fL (81-100) Mean Corpuscular Hemoglobin 27.7pg (27.0-35.0) Mean Corpuscular Hemoglobin Concent 32.5% (32.0-37.0) Red Cell Distribution Width 15.8% (12.3-15.4) Platelet Count 62bil/L (150-400) Sodium Level 133mEq/L (134-144) Potassium Level 4.0mEq/L (3.5-5.2) Chloride Level 102mEq/L (97-108) Carbon Dioxide Level 19mmol/L (18-29) Blood Urea Nitrogen 15mg/dL (6-24) Creatinine 0.63mg/dL (0.57-1.00) Estimat Glomerular Filtration Rate 145mL/min (>59) Glucose Level 386mg/dL (60-99) Calcium Level 8.4mg/dL (8.5-10.1) Discharge Medications Discharge Medications Acarbose (Acarbose) 25 Mg Tablet 100 MG PO TIDWM Prescribed by: NISHA VUONG DO Gabapentin (Gabapentin) 300 Mg Capsule 300 MG PO BIDBL (Reported) Gabapentin (Gabapentin) 300 Mg Capsule 600 MG PO HS (Reported) Insulin Glargine (Lantus U100 Insulin Vial) 100 Unit/Ml Vial 50 UNIT SUBQ BID ( Reported) Insulin Glargine (Lantus U100 Insulin Vial) 100 Unit/Ml Vial 80 UNIT SUBQ BID Prescribed by: NISHA VUONG DO Levofloxacin (Levaquin) 500 Mg Tablet 500 MG PO DAILY Prescribed by: NISHA VUONG DO Losartan Potassium (Losartan Potassium) 25 Mg Tablet 25 MG PO DAILY (Reported) Metformin ER (Metformin ER) 750 Mg Tab.er.24h 750 MG PO BID (Reported) Omeprazole (Omeprazole) 20 Mg Capsule.dr 20 MG PO DAILY (Reported) Prednisolone Acetate (Prednisolone Acetate) 5 Ml Drops.susp 1 DROP LEFT_EYE QID (Reported) Simvastatin (Simvastatin) 40 Mg Tablet 40 MG PO HS (Reported) Topiramate (Topiramate) 200 Mg Tablet 200 MG PO BID (Reported) As needed Albuterol HFA (Proair HFA) 8.5 Gm Hfa.aer.ad 2 PUFFS INHALATION Q4H PRN PRN For Shortness of Breath (Reported) Cyclopentolate (Cyclopentolate) 2 Ml Drops 1 DROP BOTH_EYES BID PRN PRN For Eye Irritation (Reported) NPH, Human Insulin Isophane (Novolin-N U100 Insulin Vial) 100 Unit/1 Ml Vial 30- 50 UNIT SUBQ ACHS PRN PRN AD (Reported) Additional med instructions Please review your diabetes medications as they have been changed. Her blood sugars have been running in the high 300s and sometimes over 400. Please follow up in new recommended medication regimen for your diabetes medications. Please keep her appointment with her bakery chef on March 26 as this is very critical to ensuring that her blood sugars are controlled. Followup Plan Disposition: Stable discharged home Follow-up plan CT scan of the chest in 4 weeks Discharge Diet: Heart Healthy, Diabetic Discharge Activity: Other (gradually returned to your normal daily activities as tolerated) Patient Instructions Please follow-up with her primary care physician to have a repeat CT scan of the chest in 4 weeks. You currently have pneumonia however there was a questionable lung mass that was noted this may have been due to the pneumonia however a repeat CT scan of the chest is necessary to ensure that no lung masses present. Follow-up Provider: Dannielle Garnica MD Follow-up with PCP in: 2 weeks (or at your next regularly scheduled visit) Provider: Quique Anthony MD Follow-up in: 1 week (if an appointment has not been made please call your primary care to make an appointment) Time spent Greater than 35 minutes copies to: Quique Anthony MD; Dannielle Garnica MD, Precious L DO Mar 21, 2016 11:21
--- NOTE | 2016-03-21 16:07 | NUR ---
Discharge Pt discharged at 1607. She was given discharge instructions and instructions for follow up care. She confirmed understanding of these instructions. Her daughter confirmed she had made the patient an appointment to see Dr. Garnica on the for follow up. Her prescriptions were faxed to [facility] in [place]. She was brought down by wheelchair to the exit where her daughter's car was parked. She left with all of her possessions and confirmed that.
--- NOTE | 2016-03-21 16:08 | NUR ---
Social Work Note: Screen Note Data & Assessment: EMR reviewed. Patient is a 45 year old female admitted on 03/19/2016 for Lung Mass. Pt has Medicare for primary insurance coverage and [facility] for secondary. Patient sees Dannielle Garnica MD for primary care. Pt uses a walker at baseline. No discharge needs identified at this time. SW to continue to follow if any needs arise. Plan: Anticipated discharge home via POV today. No discharge needs identified at this time. SW to continue to follow if any needs arise. Krys Goel LMSW, ACM
[2016-03-21] MEDS ORDERED: Insulin GLARgine 100 Unit/mL Syringe SUBQ SCH (20:30)
== END 2016-03-21 16:20 | disposition home or self-care (01) ==
LOC: SED 12:48 → MOC 21:27
PROVIDERS: ADMIT Hospitalist; ATTEND Hospitalist
DX: J18.9 Pneumonia, unspecified organism (principal); R91.8 Other nonspecific abnormal finding of lung field; R07.81 Pleurodynia; E11.65 Type 2 diabetes mellitus with hyperglycemia; E11.42 Type 2 diabetes mellitus with diabetic polyneuropathy; K74.60 Unspecified cirrhosis of liver; K76.0 Fatty (change of) liver, not elsewhere classified; R10.11 Right upper quadrant pain; R07.9 Chest pain, unspecified; G40.909 Epilepsy, unspecified, not intractable, without status epilepticus; K21.9 Gastro-esophageal reflux disease without esophagitis; E78.5 Hyperlipidemia, unspecified; Z79.4 Long term (current) use of insulin; Z86.73 Personal history of transient ischemic attack (TIA), and cerebral infarction without residual deficits; Z79.84 Long term (current) use of oral hypoglycemic drugs; Z87.891 Personal history of nicotine dependence
CPT/HCPCS: 36415; 71020; 71275; 74176; 80048; 80053; 81000; 81025; 82140; 83036; 83690; 83735; 84100; 85025; 85027; 85379; 85610; 96374; 99285; G0378; G0463; J1650; J1815; J2405; J7040; Q0169; Q9967